=== PATIENT | female | born 1965 | race African-American/Black ===

== ENCOUNTER 2017-12-26 13:57 | Emergency (ER) | payer OTHER ==
[~2017-12-26] VITALS: Ht 170.2 cm; Wt 83.9 kg
[2017-12-26 14:33] VITALS: BP 110/61
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
[2017-12-26] MEDS ORDERED: ROBAXIN500 MG PO (15:53)
[2017-12-26] MEDS ORDERED: TYLENOL EXTRA500 MG ORAL (15:53)
[2017-12-26 16:15] VITALS: BP 101/69
--- NOTE | 2017-12-26 17:48 | Diagnostic Imaging Report ---
Indication: Pain Technique: XRAY Shoulder Compl L Comparison: None Findings: There is no evidence of acute fracture or dislocation. The humeral head is well-seated in the glenoid. No focal soft tissue abnormality is seen. No radiopaque foreign body identified. Imaged portions of the lung are unremarkable. Impression: No evidence of acute fracture or dislocation.
--- NOTE | 2017-12-26 17:50 | Diagnostic Imaging Report ---
Indication: Pain status post injury. Technique: XRAY L Spine Ltd Comparison: None Findings: There are 5 nonrib-bearing lumbar-type vertebral bodies, assuming 12 paired ribs. There is no abnormal lumbar curvature. Lumbar lordosis is maintained. No evidence of acute fracture. No evidence of compression fracture. There is mild degenerative change of lumbar spine with loss of disc height, subchondral sclerosis and likely facet arthropathy. These findings are most pronounced at L3-L4 and L4-L5. Hip and sacroiliac joints are preserved. Bowel gas pattern is nonspecific. Atherosclerotic vascular calcifications seen. Impression: Mild degenerative change of the lumbar spine. No evidence to suggest acute fracture or traumatic malalignment.
--- NOTE | 2017-12-26 17:52 | Diagnostic Imaging Report ---
Indication: Pain status post injury Technique: XRAY C Spine 2-3v Comparison: None Findings: There is straightening of the cervical lordosis. There is no evidence of acute fracture. Vertebral body heights are within normal limits. Anterior and lateral atlantodental intervals are within normal limits; no evidence of dens fracture. There is degenerative changes of the cervical spine with loss of disc height and anterior osteophyte formation. These findings are most pronounced from C4-C7. Partially imaged mastoid air cells, paranasal sinuses and lung apices clear. Impression: Degenerative change of the cervical spine. No evidence of acute fracture.
== END 2017-12-26 16:15 | disposition home or self-care (01) ==
LOC: EMR 14:43
DX: S16.1XXA Strain of muscle, fascia and tendon at neck level, initial encounter (principal); S39.012A Strain of muscle, fascia and tendon of lower back, initial encounter; M25.512 Pain in left shoulder; V43.62XA Car passenger injured in collision with other type car in traffic accident, initial encounter; Y92.410 Unspecified street and highway as the place of occurrence of the external cause
CPT/HCPCS: 72020; 72040; 99284